=== PATIENT | male | born 1990 | race Caucasian/White ===

== ENCOUNTER 2020-11-02 21:12 | Emergency (ER) | payer OTHER, SELFPAY ==
--- NOTE | ~2020-11-02 | CT_ITS ---
EXAMINATION: CT HEAD WITHOUT CONTRAST CLINICAL INFORMATION: Fall. COMPARISON: None. TECHNIQUE: Contiguous axial imaging was performed from the skull base to vertex without intravenous administration of contrast. Coronal and sagittal reformatted images are performed at the CT scanner. [This CT examination was performed using dose optimization techniques as appropriate, variously including the following: *Automated exposure control *Adjustment of mA and/or kV according to patient size (this includes techniques or standardized protocols for targeted exams where dose is matched to indication/reason for exam; i.e. extremities or head) *Use of iterative reconstruction technique] DLP: 690 mGy-cm. FINDINGS: Small scalp hematoma the right posterior parietal region. No skull fracture. There is no evidence of acute intracranial hemorrhage or territorial infarction. No abnormal mass-effect or midline shift is seen. Roque to white matter differentiation is well preserved. No extra-axial fluid collections are identified. The ventricles are normal in size. There is no abnormal attenuation within the brain parenchyma. The mastoid air cells and visualized portions of the paranasal sinuses are well-aerated. CT/CT head/brain wo con IMPRESSION: No acute intracranial pathology.
[2020-11-02 21:36] VITALS: BP 128/78; PULSE 87; RESP 18; TEMP 36.7; O2SAT 99; BMI 23.6
--- NOTE | 2020-11-02 21:50 | ED.HEATRA ---
HPI - Head Injury General Chief complaint: Head Injury Stated complaint: Head injury Time Seen by Provider: 11/02/20 21:50 Source: patient Mode of arrival: ambulatory Limitations: no limitations History of Present Illness HPI Narrative: Patient was playing golfing friend hit him by mistake with golf cart patient lost balance and fell backwards hitting his head to the pole of the golf cart came with a laceration to the back of the head ,felt dizzy and passed out for few minutes complaining of headache and nausea no vomiting no motor weakness Related Data Allergies Allergy/AdvReac Type Severity Reaction Status Date / Time No Known Allergies Allergy Verified 11/02/20 21:36 Review of Systems Review of Systems: Yes all other systems are reviewed and are negative [facility] Past Medical History Medical History No acute medical problems Social History Social History Advance Directives: No Advance Directives Information Provided: Yes Physical Exam Vital Signs: Vital Signs: Last Vital Signs Temp 98.1 F 11/02/20 21:36 Pulse 87 11/02/20 21:36 Resp 18 11/02/20 21:36 BP 128/78 11/02/20 21:36 Pulse Ox 99 11/02/20 21:36 Body Mass Index 23.6 Const: General: comfortable and no acute distress Orientation/consciousness: oriented to person, oriented to place, oriented to time and patient oriented x3 HENMT: Head: Yes No palpable skull fracture present Head images: 1. 2.5 cm laceration Ears: hearing grossly normal bilaterally General nose exam: Normal external nose present Face and sinus: Yes normal facial exam Mouth: Normal oral and palatal mucosa present Resp: Effort & Inspection: normal respiratory effort Auscultation: clear to auscultation bilaterally Cardio: Palpation: normal PMI Rate: regular rate Rhythm: regular rhythm Heart sounds: S1 normal heart sound present and S2 normal heart sound present GI: Palpation (GI): Soft to palpation and nontender Auscultation: normal bowel sounds Neuro: General: oriented to person, oriented to place, oriented to time, patient oriented x3, gait normal and no focal motor deficits Procedures Laceration Laceration 1: Site: scalp Size (cm): 2.5 Description: linear Depth: simple, single layer Skin layer closed with: other (Four chris) MDM - Head Injury MDM Narrative Medical decision making narrative: CT scan head negative for any acute bleed test , laceration stapled Discharge Plan Discharge Clinical Impression: Closed head injury, Laceration of occipital region of scalp Patient Disposition: Home, Self-Care Instructions: Head Injury (ED), Staple Care (ED) Additional Instructions: Minor head injury, apply ice, local care as advised chris removal in 5-7 days Interventions: ED Discharge Assessment Last Done: 11/02/20 22:48 Discharge Date/Time: 11/02/20 22:50
== END 2020-11-02 22:50 | disposition home or self-care (01) ==
PROVIDERS: Emergency Provider Internal Medicine
DX: S01.01XA Laceration without foreign body of scalp, initial encounter (principal); V09.09XA Pedestrian injured in nontraffic accident involving other motor vehicles, initial encounter; Y93.53 Activity, golf; Y92.39 Other specified sports and athletic area as the place of occurrence of the external cause; Y99.9 Unspecified external cause status
CPT/HCPCS: 12001; 70450; 99283; 99284